=== PATIENT | female | born 1940 | race Caucasian/White ===

== ENCOUNTER 2018-05-12 00:47 | Inpatient (IN) | payer MEDICARE ==
[2018-05-12 01:03] LABS: Glucose,Whole Blood 287 mg/dL (75-99)
--- NOTE | 2018-05-12 01:09 | ED ---
General Adult HPI - General Chief complaint: Recheck/Abnormal Lab/Rx Stated complaint: High blood sugar Time Seen by Provider: 05/12/18 01:06 Source: patient Mode of arrival: wheelchair Limitations: no limitations - History of Present Illness Initial comments: Jimena is a 78-year-old female who presents to the emergency department today for evaluation of generalized fatigue and hyperglycemia. Patient reports that 3 days ago she was diagnosed with a urinary tract infection by her primary care physician she was prescribed by mouth Cipro which she reports she has been taking. Patient which she has taken 5 or 6 doses of the by mouth Cipro. Despite being compliant with her home medications the patient reports that she is progressively felt weaker and weaker and more unwell. Patient reports that she's had subjective fevers, generalized malaise, nausea and decreased appetite. She denies any abdominal pain nausea vomiting or diarrhea. She reports urinary frequency but no dysuria hematuria or malodorous urine in the past 24 hours. She states that for the past 24 hours she's felt too weak to even get out of bed and required her 's assistance to get to the restroom. This is very unlike her, she usually does walk with a walker around the house but recently has not even been able to support herself with a walker. Patient reports she checked her blood glucose at home and it read high, she has never experienced this in the past which prompted her to bring her to The ER for reevaluation. - Related Data Allergies Allergy/AdvReac Type Severity Reaction Status Date / Time No Known Allergies Allergy Verified 05/12/18 00:54 Review of Systems ROS Statement: Those systems with pertinent positive or pertinent negative responses have been documented in the HPI. ROS Other: All systems not noted in ROS Statement are negative. Past Medical History Past Medical History: Diabetes Mellitus, Hypertension History of Any Multi-Drug Resistant Organisms: None Reported Past Surgical History: Back Surgery Past Psychological History: No Psychological Hx Reported Smoking Status: Never smoker Past Alcohol Use History: Occasional Past Drug Use History: None Reported General Exam - General Exam Comments Initial Comments: GENERAL: Patient is well-developed and well-nourished. Patient appears dehydrated, is warm to the touch tachycardic and appears unwell. HENT: Normocephalic, Atraumatic. Neck is soft and supple. No significant lymphadenopathy is noted. Oropharynx is clear. Moist mucous membranes. Neck has full range of motion without eliciting any pain. EYES: The sclera were anicteric and conjunctiva were pink and moist. Extraocular movements were intact and pupils were equal round and reactive to light. Eyelids were unremarkable. PULMONARY: Unlabored respirations. Good breath sounds bilaterally. No audible rales rhonchi or wheezing was noted. CARDIOVASCULAR: There is a regular rate and rhythm without any murmurs gallops or rubs. ABDOMEN: Soft and nontender with normal bowel sounds. SKIN: Skin is pale with no lesions or rashes and otherwise unremarkable. NEUROLOGIC: Patient is alert and oriented x3. MUSCULOSKELETAL: Normal extremities with adequate strength and full range of motion. No lower extremity swelling or edema. No calf tenderness. LYMPHATICS: No significant lymphadenopathy is noted PSYCHIATRIC: Normal psychiatric evaluation. Limitations: no limitations Limitations: no limitations Course Vital Signs 05/12/18 05/12/18 05/12/18 00:51 02:00 02:33 Temperature 99.1 F 98.7 F Pulse Rate 130 H 119 H 114 H Respiratory 18 16 16 Rate Blood Pressure 158/80 175/82 O2 Sat by Pulse 98 94 L Oximetry 05/12/18 05/12/18 05/12/18 03:14 04:51 06:08 Temperature 98.6 F 100.3 F H 99.1 F Pulse Rate 115 H 111 H 111 H Respiratory 18 16 16 Rate Blood Pressure 178/82 162/83 189/92 O2 Sat by Pulse 98 96 97 Oximetry EKG Findings - EKG Comments: EKG Findings:: EKG obtained at 7 AM, rate is 118, rhythm is sinus tachycardia, normal axis, normal intervals, AR 136, QRS 72, QTc 442, there is no acute ST elevations or depressions no evidence of acute ischemia or infarction. Medical Decision Making - Medical Decision Making Patient was seen and evaluated, history is obtained from the patient and Elderly patient on by mouth Cipro for urinary tract infection presenting with generalized fatigue, tachycardia, has a tactile fever though her oral temperature was negative patient had been drinking fluids prior to arrival A sepsis workup was ordered Urinalysis is negative for any acute UTI Chest x-ray with no acute pulmonary pathology Labs with mild elevated transaminases of unknown origin CT of the abdomen was ordered, no acute findings on CT of the abdomen to account for inpatient Sirs criteria At this time is possible the patient's suffering from a viral illness in addition to recovering from a urinary tract infection, however considering her advanced age, tachycardia, temperature of 100.3 transaminases I do feel she requires further monitoring. Patient and are comfortable with the plan for discharge home therefore we'll plan to put the patient in observation Sirs criteria. Patient care discussed with Dr. Duarte who accepts the patient to observation for SIRS criteria in elderly female. - Lab Data Result diagrams: 05/12/18 01:52 05/12/18 01:53 Lab Results 05/12/18 05/12/18 05/12/18 Range/Units 01:02 01:52 01:53 WBC 6.7 (3.8-10.6) k/uL RBC 4.14 (3.80-5.40) m/uL Hgb 12.5 (11.4-16.0) gm/dL Hct 40.1 (34.0-46.0) % MCV 96.9 (80.0-100.0) fL MCH 30.1 (25.0-35.0) pg MCHC 31.1 (31.0-37.0) g/dL RDW 13.6 (11.5-15.5) % Plt Count 171 (150-450) k/uL Neutrophils % 90 % Lymphocytes % 5 % Monocytes % 3 % Eosinophils % 1 % Basophils % 1 % Neutrophils # 6.0 (1.3-7.7) k/uL Lymphocytes # 0.3 L (1.0-4.8) k/uL Monocytes # 0.2 (0-1.0) k/uL Eosinophils # 0.1 (0-0.7) k/uL Basophils # 0.0 (0-0.2) k/uL PT (9.0-12.0) sec INR (<1.2) APTT (22.0-30.0) sec Sodium 133 L (137-145) mmol/L Potassium 3.8 (3.5-5.1) mmol/L Chloride 106 (98-107) mmol/L Carbon Dioxide 19 L (22-30) mmol/L Anion Gap 8 mmol/L BUN 16 (7-17) mg/dL Creatinine 0.42 L (0.52-1.04) mg/dL Est GFR (CKD-EPI)AfAm >90 (>60 ml/min/1.73 sqM) Est GFR (CKD-EPI)NonAf >90 (>60 ml/min/1.73 sqM) Glucose 294 H (74-99) mg/dL POC Glucose (mg/dL) 287 H (75-99) mg/dL POC Glu Track Superintendent Dari Son Osmolality 292 (280-301) mosm/kg Plasma Lactic Acid Clarke (0.7-2.0) mmol/L Calcium 8.8 (8.4-10.2) mg/dL Total Bilirubin 0.6 (0.2-1.3) mg/dL AST 161 H (14-36) U/L ALT 140 H (9-52) U/L Alkaline Phosphatase 123 (38-126) U/L Troponin I (0.000-0.034) ng/mL Total Protein 5.9 L (6.3-8.2) g/dL Albumin 3.2 L (3.5-5.0) g/dL Urine Color Urine Appearance (Clear) Urine pH (5.0-8.0) Ur Specific Marsteller (1.001-1.035) Urine Protein (Negative) Urine Glucose (UA) (Negative) Urine Ketones (Negative) Urine Blood (Negative) Urine Nitrite (Negative) Urine Bilirubin (Negative) Urine Urobilinogen (<2.0) mg/dL Ur Leukocyte Esterase (Negative) Urine RBC (0-5) /hpf Urine WBC (0-5) /hpf Ur Squamous Epith Cells (0-4) /hpf Urine Mucus (None) /hpf Acetone, Qual Positive (Negative) 05/12/18 05/12/18 05/12/18 Range/Units 01:53 01:53 01:53 WBC (3.8-10.6) k/uL RBC (3.80-5.40) m/uL Hgb (11.4-16.0) gm/dL Hct (34.0-46.0) % MCV (80.0-100.0) fL MCH (25.0-35.0) pg MCHC (31.0-37.0) g/dL RDW (11.5-15.5) % Plt Count (150-450) k/uL Neutrophils % % Lymphocytes % % Monocytes % % Eosinophils % % Basophils % % Neutrophils # (1.3-7.7) k/uL Lymphocytes # (1.0-4.8) k/uL Monocytes # (0-1.0) k/uL Eosinophils # (0-0.7) k/uL Basophils # (0-0.2) k/uL PT 9.9 (9.0-12.0) sec INR 1.0 (<1.2) APTT 22.9 (22.0-30.0) sec Sodium (137-145) mmol/L Potassium (3.5-5.1) mmol/L Chloride (98-107) mmol/L Carbon Dioxide (22-30) mmol/L Anion Gap mmol/L BUN (7-17) mg/dL Creatinine (0.52-1.04) mg/dL Est GFR (CKD-EPI)AfAm (>60 ml/min/1.73 sqM) Est GFR (CKD-EPI)NonAf (>60 ml/min/1.73 sqM) Glucose (74-99) mg/dL POC Glucose (mg/dL) (75-99) mg/dL POC Glu Track Superintendent ID Osmolality (280-301) mosm/kg Plasma Lactic Acid Clarke 0.9 (0.7-2.0) mmol/L Calcium (8.4-10.2) mg/dL Total Bilirubin (0.2-1.3) mg/dL AST (14-36) U/L ALT (9-52) U/L Alkaline Phosphatase (38-126) U/L Troponin I 0.014 (0.000-0.034) ng/mL Total Protein (6.3-8.2) g/dL Albumin (3.5-5.0) g/dL Urine Color Urine Appearance (Clear) Urine pH (5.0-8.0) Ur Specific [place]steller (1.001-1.035) Urine Protein (Negative) Urine Glucose (UA) (Negative) Urine Ketones (Negative) Urine Blood (Negative) Urine Nitrite (Negative) Urine Bilirubin (Negative) Urine Urobilinogen (<2.0) mg/dL Ur Leukocyte Esterase (Negative) Urine RBC (0-5) /hpf Urine WBC (0-5) /hpf Ur Squamous Epith Cells (0-4) /hpf Urine Mucus (None) /hpf Acetone, Qual (Negative) 05/12/18 Range/Units 03:12 WBC (3.8-10.6) k/uL RBC (3.80-5.40) m/uL Hgb (11.4-16.0) gm/dL Hct (34.0-46.0) % MCV (80.0-100.0) fL MCH (25.0-35.0) pg MCHC (31.0-37.0) g/dL RDW (11.5-15.5) % Plt Count (150-450) k/uL Neutrophils % % Lymphocytes % % Monocytes % % Eosinophils % % Basophils % % Neutrophils # (1.3-7.7) k/uL Lymphocytes # (1.0-4.8) k/uL Monocytes # (0-1.0) k/uL Eosinophils # (0-0.7) k/uL Basophils # (0-0.2) k/uL PT (9.0-12.0) sec INR (<1.2) APTT (22.0-30.0) sec Sodium (137-145) mmol/L Potassium (3.5-5.1) mmol/L Chloride (98-107) mmol/L Carbon Dioxide (22-30) mmol/L Anion Gap mmol/L BUN (7-17) mg/dL Creatinine (0.52-1.04) mg/dL Est GFR (CKD-EPI)AfAm (>60 ml/min/1.73 sqM) Est GFR (CKD-EPI)NonAf (>60 ml/min/1.73 sqM) Glucose (74-99) mg/dL POC Glucose (mg/dL) (75-99) mg/dL POC Glu Track Superintendent ID Osmolality (280-301) mosm/kg Plasma Lactic Acid Clarke (0.7-2.0) mmol/L Calcium (8.4-10.2) mg/dL Total Bilirubin (0.2-1.3) mg/dL AST (14-36) U/L ALT (9-52) U/L Alkaline Phosphatase (38-126) U/L Troponin I (0.000-0.034) ng/mL Total Protein (6.3-8.2) g/dL Albumin (3.5-5.0) g/dL Urine Color Light Yellow Urine Appearance Clear (Clear) Urine pH 6.0 (5.0-8.0) Ur Specific [place]steller 1.028 (1.001-1.035) Urine Protein 1+ H (Negative) Urine Glucose (UA) 4+ H (Negative) Urine Ketones 2+ H (Negative) Urine Blood Negative (Negative) Urine Nitrite Negative (Negative) Urine Bilirubin Negative (Negative) Urine Urobilinogen <2.0 (<2.0) mg/dL Ur Leukocyte Esterase Negative (Negative) Urine RBC 1 (0-5) /hpf Urine WBC 3 (0-5) /hpf Ur Squamous Epith Cells <1 (0-4) /hpf Urine Mucus Rare H (None) /hpf Acetone, Qual (Negative) Disposition Clinical Impression: SIRS (systemic inflammatory response syndrome) Disposition: ADMITTED IP TO THIS HOSP Condition: Stable Referrals: Allen Bahena MD [Primary Care Provider] - 1-2 days
[2018-05-12] MEDS: SODIUM CHLORIDE 0.9% 500 ML IV SCH (01:55)
[2018-05-12 02:08] LABS: Basophils % (A) 1 %; Eosinophils # (A) 0.1 k/uL (0-0.7); Eosinophils % (A) 1 %; HCT 40.1 % (34.0-46.0); HGB 12.5 gm/dL (11.4-16.0); Lymphocytes # (A) 0.3 k/uL (1.0-4.8); Lymphocytes % (A) 5 %; MCH 30.1 pg (25.0-35.0); MCHC 31.1 g/dL (31.0-37.0); MCV 96.9 fL (80.0-100.0); Mean Platelet Volume 7.9; Monocytes # (A) 0.2 k/uL (0-1.0); Monocytes % (A) 3 %; Neutrophils % (A) 90 %; Platelet Count 171 k/uL (150-450); RBC 4.14 m/uL (3.80-5.40); RDW 13.6 % (11.5-15.5); WBC 6.7 k/uL (3.8-10.6)
[2018-05-12 02:19] LABS: ALT 140 U/L (9-52); AST 161 U/L (14-36); Albumin 3.2 g/dL (3.5-5.0); Alkaline Phosphatase 123 U/L (38-126); Anion Gap 8 mmol/L; Blood Urea Nitrogen 16 mg/dL (7-17); Calcium 8.8 mg/dL (8.4-10.2); Carbon Dioxide 19 mmol/L (22-30); Chloride 106 mmol/L (98-107); Glucose 294 mg/dL (74-99); Potassium 3.8 mmol/L (3.5-5.1); Sodium 133 mmol/L (137-145); Total Bilirubin 0.6 mg/dL (0.2-1.3); Total Protein 5.9 g/dL (6.3-8.2)
[2018-05-12 02:22] LABS: Partial Thromboplastin Time 22.9 sec (22.0-30.0); Prothrombin Time 9.9 sec (9.0-12.0)
[2018-05-12 03:21] LABS: Appearance,Urine Clear (Clear); Bilirubin,Urine Negative (Negative); Blood,Urine Negative (Negative); Color,Urine Light Yellow; Glucose,Urine (UA) 4+ (Negative); Leukocyte Esterase,Urine Negative (Negative); Mucus,Urine Rare /hpf; Nitrite,Urine Negative (Negative); Protein,Urine 1+ (Negative); RBC,Urine 1 /hpf (0-5); Specific Gravity,Urine 1.028 (1.001-1.035); Squamous Epithelial Cell,Urine <1 /hpf (0-4); Urobilinogen,Urine <2.0 mg/dL (<2.0); WBC,Urine 3 /hpf (0-5)
[2018-05-12 03:38] LABS: Ketones,Urine 2+ (Negative)
--- NOTE | 2018-05-12 04:20 | XR ---
EXAMINATION TYPE: XR chest 2V DATE OF EXAM: 05/12/2018 COMPARISON: NONE HISTORY: Chest pain TECHNIQUE: Frontal and lateral views of the chest are obtained. FINDINGS: There is some patchy linear density in the mid and lower lung barnes. There is no heart fa ilure. Heart size is fairly normal. There is no pleural effusion. Bony thorax is intact. There are ch est leads. IMPRESSION: Bilateral patchy atelectasis. No heart failure. No pulmonary consolidation.
--- NOTE | 2018-05-12 05:34 | CT ---
EXAMINATION TYPE: CT abdomen pelvis w con DATE OF EXAM: 05/12/2018 COMPARISON: None HISTORY: gen weakness and nausea, elevated blood sugar, history of cholecystectomy CT DLP: 617.90 mGycm Automated exposure control for dose reduction was used. TECHNIQUE: Helical acquisition of images was performed from the lung bases through the pelvis. CONTRAST: Performed without Oral Contrast and with IV Contrast, patient injected with 100 mL of Isovue 300. FINDINGS: There is some patchy linear density in both lower lobes. There is no pleural effusion. There are smal l hiatal hernia. Liver spleen pancreas appear normal. There are clips from cholecystectomy. Bile ducts are not dilated . There is no adrenal mass. Kidneys show satisfactory contrast opacification. There is no hydronephro sis. Ureters are not dilated. Abdominal aorta is atheromatous. There is no retroperitoneal adenopathy . There is small umbilical hernia that contains fat. There are multiple diverticula in the sigmoid co delmer. Uterus is anteverted. There are spondylotic changes in the lumbar spine. There is metal artifact from posterior fusion surgery. There is no ascites. There is no sign of free air. Appendix appears n ormal. IMPRESSION: THERE ARE SMALL HIATAL HERNIA. MILD SIGMOID DIVERTICULOSIS WITHOUT DIVERTICULITIS. NORMAL APPENDIX. N O SIGN OF ACUTE ABDOMEN AND PELVIS. MILD SCARRING AND SUBSEGMENTAL ATELECTASIS AT THE POSTERIOR LUNG BASES.
[2018-05-12 07:34] LABS: Glucose,Whole Blood 250 mg/dL (75-99)
[2018-05-12] MEDS: INSULIN ASPART 100 UNIT/ML 1 ML 10 ML VIAL SQ SCH ×4 (08:27→21:04)
[2018-05-12 09:01] VITALS: BMI 24.1
[2018-05-12 11:09] LABS: Glucose,Whole Blood 355 mg/dL (75-99)
--- NOTE | 2018-05-12 11:14 | P.HPIM ---
History of Present Illness 78-year-old female came in with generalized fatigue and confusional episodes. Patient also had fever in ER. All the workup is negative patient denied any abdominal tenderness was comparing of cough without any sputum production that is some mild atelectasis on the chest x-ray abdominal CAT scan was opted which did not show any significant of nausea patient does not have gallbladder patient denied any dysuria suprapubic pain at this time. Patient was recently about 3-4 days ago was evaluated by primary care physician believed that she had urinary tract infection patient was started on fluoroquinolones and the believes fluoroquinolones may have contributed to her confusion and generalized fatigue she denied any diarrhea. Patient denied any photophobia denied any generalized body aches. Patient was comparing of restless leg syndrome and patient has on and off pain in the left hip area where she has a bursa and received an injection to the bursa about a month ago. Patient still has on and off pain which is not more than normal. There is no tenderness in the left hip area and there is no redness anywhere. Patient denied any headache. Denied any diarrhea, complaining of some nausea Review of Systems REVIEW OF SYSTEMS: CONSTITUTIONAL: As mentioned in HPI HEENT: No recent visual problems or hearing problems. Denied any sore throat. CARDIOVASCULAR: No chest pain, orthopnea, PND, no palpitations, no syncope. PULMONARY: No shortness of breath, no cough, no hemoptysis. GASTROINTESTINAL: No diarrhea, no nausea, no vomiting, no abdominal pain. Normoactive bowel sounds. NEUROLOGICAL: No headaches, no weakness, no numbness. HEMATOLOGICAL: Denies any bleeding or petechiae. GENITOURINARY: Denies any burning micturition, frequency, or urgency. MUSCULOSKELETAL/RHEUMATOLOGICAL: Denies any joint pain, swelling, or any muscle pain. ENDOCRINE: Denies any polyuria or polydipsia. The rest of the 14-point review of systems is negative. Past Medical History Past Medical History: Diabetes Mellitus, Hypertension History of Any Multi-Drug Resistant Organisms: None Reported Past Surgical History: Back Surgery Past Psychological History: No Psychological Hx Reported Smoking Status: Never smoker Past Alcohol Use History: Occasional Past Drug Use History: None Reported Medications and Allergies Allergies Allergy/AdvReac Type Severity Reaction Status Date / Time No Known Allergies Allergy Verified 05/12/18 00:54 Physical Exam Vitals: Vital Signs Temp Pulse Resp BP Pulse Ox 05/12/18 08:42 97.0 F L 106 H 18 159/87 98 05/12/18 07:10 99.6 F 109 H 16 161/80 97 05/12/18 06:08 99.1 F 111 H 16 189/92 97 05/12/18 04:51 100.3 F H 111 H 16 162/83 96 05/12/18 03:14 98.6 F 115 H 18 178/82 98 05/12/18 02:33 98.7 F 114 H 16 05/12/18 02:00 119 H 16 175/82 94 L 05/12/18 00:51 99.1 F 130 H 18 158/80 98 Intake and Output 05/11/18 05/12/18 05/12/18 22:59 06:59 14:59 Other: Weight 63.503 kg 59.874 kg PHYSICAL EXAMINATION: GENERAL: The patient is alert and oriented x3, not in any acute distress. Well developed, well nourished. HEENT: Pupils are round and equally reacting to light. EOMI. No scleral icterus. No conjunctival pallor. Normocephalic, atraumatic. No pharyngeal erythema. No thyromegaly. CARDIOVASCULAR: S1 and S2 present. No murmurs, rubs, or gallops. PULMONARY: Chest is clear to auscultation, no wheezing or crackles. ABDOMEN: Soft, nontender, nondistended, normoactive bowel sounds. No palpable organomegaly. MUSCULOSKELETAL: No joint swelling or deformity. EXTREMITIES: No cyanosis, clubbing, or pedal edema. NEUROLOGICAL: Gross neurological examination did not reveal any focal deficits. SKIN: No rashes. Results CBC & Chem 7: 05/12/18 01:52 05/12/18 01:53 Labs: Abnormal Lab Results - Last 24 Hours (Table) 05/12/18 05/12/18 05/12/18 Range/Units 01:02 01:52 01:53 Lymphocytes # 0.3 L (1.0-4.8) k/uL Sodium 133 L (137-145) mmol/L Carbon Dioxide 19 L (22-30) mmol/L Creatinine 0.42 L (0.52-1.04) mg/dL Glucose 294 H (74-99) mg/dL POC Glucose (mg/dL) 287 H (75-99) mg/dL AST 161 H (14-36) U/L ALT 140 H (9-52) U/L Total Protein 5.9 L (6.3-8.2) g/dL Albumin 3.2 L (3.5-5.0) g/dL Urine Protein (Negative) Urine Glucose (UA) (Negative) Urine Ketones (Negative) Urine Mucus (None) /hpf 05/12/18 05/12/18 Range/Units 03:12 07:31 Lymphocytes # (1.0-4.8) k/uL Sodium (137-145) mmol/L Carbon Dioxide (22-30) mmol/L Creatinine (0.52-1.04) mg/dL Glucose (74-99) mg/dL POC Glucose (mg/dL) 250 H (75-99) mg/dL AST (14-36) U/L ALT (9-52) U/L Total Protein (6.3-8.2) g/dL Albumin (3.5-5.0) g/dL Urine Protein 1+ H (Negative) Urine Glucose (UA) 4+ H (Negative) Urine Ketones 2+ H (Negative) Urine Mucus Rare H (None) /hpf Microbiology - Last 24 Hours (Table) 05/12/18 03:12 Urine Culture - Preliminary Urine,Voided Thrombosis Risk Factor Assmnt - Choose All That Apply Any of the Below Risk Factors Present?: No Other Risk Factors: No Thrombosis Risk Factor Assessment Level: Very Low Risk Assessment and Plan Plan: -Systemic inflammatory response syndrome or sepsis: Unsure of about the exact etiology of her fever can be urinary tract infection which was partially treated because of which urine analysis is essentially within normal limits. Patient is already receiving ciprofloxacin because of which I do not believe her urine culture will be positive and her confusion is probably because of Cipro Floxin or sepsis itself. Patient does not have any hip tenderness. We' ll continue to monitor today awaiting blood cultures urine cultures. If patient is afebrile will be discharged tomorrow. Patient will be continued on Rocephin for now -Toxic encephalopathy from fluoroquinolones. -Elevated liver enzymes etiology is unknown we'll repeat compresses metabolic profile tomorrow we will also obtain a hepatitis panel patient doesn't have any gallbladder at this time the patient liver enzymes are still elevated will obtain a right upper quadrant ultrasound to see if there is any choledocholithiasis or ascending cholangitis -Type 2 diabetes mellitus with elevated blood sugars: Patient is presently on sliding scale insulin I do not have her medication list available yet. Once we get the list patient the medications will be restarted back which are is appropriate -Hypertension -Restless leg syndrome: Patient will be started on requip
[2018-05-12] MEDS: SODIUM CHLORIDE 0.9% 1,000 ML IV SCH ×2 (15:54→21:06)
[2018-05-12 15:55] LABS: Glucose,Whole Blood 245 mg/dL (75-99)
[2018-05-12 17:23] LABS: Glucose,Whole Blood 239 mg/dL (75-99)
[2018-05-12 17:47] LABS: Hepatitis A Antibody IgM Non-Reactive (Non-Reactive); Hepatitis B Core IgM Non-Reactive (Non-Reactive)
[2018-05-12 18:37] LABS: Hemoglobin A1C 10.4 % (4.0-6.0)
[2018-05-12 20:22] LABS: Glucose,Whole Blood 247 mg/dL (75-99)
[2018-05-12] MEDS: GABAPENTIN 400 MG CAP PO SCH (21:04)
[2018-05-12] MEDS ORDERED: LISINOPRIL 10 MG TAB PO STA (21:27)
[2018-05-12 21:33] VITALS: RESP 16
[2018-05-13 07:31] LABS: Glucose,Whole Blood 220 mg/dL (75-99)
[2018-05-13 07:31] LABS: HCT 38.5 % (34.0-46.0); HGB 12.4 gm/dL (11.4-16.0); MCH 30.8 pg (25.0-35.0); MCHC 32.1 g/dL (31.0-37.0); MCV 95.7 fL (80.0-100.0); Mean Platelet Volume 7.8; Platelet Count 174 k/uL (150-450); RBC 4.02 m/uL (3.80-5.40); RDW 13.5 % (11.5-15.5); WBC 5.2 k/uL (3.8-10.6)
[2018-05-13 07:50] LABS: ALT 119 U/L (9-52); AST 67 U/L (14-36); Alkaline Phosphatase 117 U/L (38-126); Anion Gap 9 mmol/L; Blood Urea Nitrogen 10 mg/dL (7-17); Calcium 8.8 mg/dL (8.4-10.2); Carbon Dioxide 20 mmol/L (22-30); Chloride 113 mmol/L (98-107); Glucose 216 mg/dL (74-99); Potassium 3.7 mmol/L (3.5-5.1); Sodium 142 mmol/L (137-145); Total Bilirubin 0.3 mg/dL (0.2-1.3); Total Protein 5.6 g/dL (6.3-8.2)
--- NOTE | 2018-05-13 08:01 | US ---
EXAMINATION TYPE: US gallbladder DATE OF EXAM: 05/13/2018 COMPARISON: CLINICAL HISTORY: elevated liver enzymes. GB removed >40 years per patient. Sometimes has nausea. EXAM MEASUREMENTS: Liver Length: 14.7 cm CBD: 0.3 cm CHD: 0.4 cm Right Kidney: 11.1 x 4.8 x 4.5 cm Pancreas: Echogenic and heterogenous in appearance. Main pancreatic duct = 2.5 mm. Tail obscured by overlying bowel gas Liver: wnl Gallbladder: Surgically absent Evidence for sonographic Mcdermott's sign: neg CBD: wnl CHD: wnl Right Kidney: wnl Limited views of the pancreas are normal. The liver is normal in size without biliary dilatation. The gallbladder is been removed. Distal common hepatic duct measures 4 mm. The right kidney is unremarkable. IMPRESSION: NO ACUTE RIGHT UPPER QUADRANT ABNORMALITY.
[2018-05-13] MEDS: INSULIN DETEMIR 100 UNIT/ML 10 ML VIAL SQ SCH (09:03)
[2018-05-13] MEDS: PANTOPRAZOLE 40 MG TABLET PO SCH (09:03)
[2018-05-13] MEDS: GABAPENTIN 400 MG CAP PO SCH ×2 (09:03→21:34)
[2018-05-13] MEDS: INSULIN ASPART 100 UNIT/ML 1 ML 10 ML VIAL SQ SCH ×4 (09:03→21:36)
[2018-05-13] MEDS: LISINOPRIL 10 MG TAB PO SCH (09:03)
[2018-05-13] MEDS: SODIUM CHLORIDE 0.9% 1,000 ML IV SCH ×2 (09:04→17:51)
[2018-05-13] MEDS ORDERED: RX INFO: IV CONTRAST WAS GIVEN 1 EACH MISC MISCELLANE PRN (10:38)
--- NOTE | 2018-05-13 11:02 | P.DS ---
Providers Date of admission: 05/12/18 07:59 Attending physician: Ketan Duarte Primary care physician: [facility] Course: This is a discharge summary and progress note. 78-year-old female came in with generalized fatigue and confusional episodes. Patient also had fever in ER. All the workup is negative patient denied any abdominal tenderness was comparing of cough without any sputum production that is some mild atelectasis on the chest x-ray abdominal CAT scan was opted which did not show any significant of nausea patient does not have gallbladder patient denied any dysuria suprapubic pain at this time. Patient was recently about 3-4 days ago was evaluated by primary care physician believed that she had urinary tract infection patient was started on fluoroquinolones and the believes fluoroquinolones may have contributed to her confusion and generalized fatigue she denied any diarrhea. Patient denied any photophobia denied any generalized body aches. Patient was comparing of restless leg syndrome and patient has on and off pain in the left hip area where she has a bursa and received an injection to the bursa about a month ago. Patient still has on and off pain which is not more than normal. There is no tenderness in the left hip area and there is no redness anywhere. Patient denied any headache. Denied any diarrhea, complaining of some nausea 05/13/2018 Patient is feeling much better today no fevers today. Patient is feeling better sitting in the chair. Patient remains tachycardic because of which obtain TSH which is still pending d-dimer is elevated will obtain a CAT scan of the chest rule out pulmonary embolism. Source of infection is still not clear possibility of urinary tract infection since source is not clear in all the workup is negative including ultrasound of the abdomen patient will be discharged on 1 week of Ceftin. AST and ALT are coming down. If CAT scan of the abdomen is negative for pulmonary embolism patient will be discharged today. PHYSICAL EXAMINATION: GENERAL: The patient is alert and oriented x3, not in any acute distress. Well developed, well nourished. HEENT: Pupils are round and equally reacting to light. EOMI. No scleral icterus. No conjunctival pallor. Normocephalic, atraumatic. No pharyngeal erythema. No thyromegaly. CARDIOVASCULAR: S1 and S2 present. No murmurs, rubs, or gallops. PULMONARY: Chest is clear to auscultation, no wheezing or crackles. ABDOMEN: Soft, nontender, nondistended, normoactive bowel sounds. No palpable organomegaly. MUSCULOSKELETAL: No joint swelling or deformity. EXTREMITIES: No cyanosis, clubbing, or pedal edema. NEUROLOGICAL: Gross neurological examination did not reveal any focal deficits. SKIN: No rashes. Assessment and Plan Plan: -Systemic inflammatory response syndrome or sepsis: Unsure of about the exact etiology of her fever can be urinary tract infection which was partially treated because of which urine analysis is essentially within normal limits. Patient is already receiving ciprofloxacin because of which I do not believe her urine culture will be positive and her confusion is probably because of Cipro Floxin or sepsis itself. Patient does not have any hip tenderness. She is still tachycardic will rule out pulmonary embolism as mentioned about TSH is still pending -Toxic encephalopathy from fluoroquinolones. -Elevated liver enzymes all the workup including the right upper quadrant ultrasound along with a hepatitis panel are negative when the liver enzymes are coming down no further workup is necessary at this time. -Type 2 diabetes mellitus with elevated blood sugars: Patient will resume her home regimen although her blood sugars are not well-controlled with hemoglobin A1c about 10 patient may need up titration of her medications. -Hypertension -Restless leg syndrome: Patient will be discharged on Requip Patient Condition at Discharge: Stable Plan - Discharge Summary New Discharge Prescriptions: No Action Benazepril [Lotensin] 10 mg PO DAILY glipiZIDE [Glucotrol] 10 mg PO AC-BID Gabapentin [Neurontin] 400 mg PO BID Omeprazole 20 mg PO DAILY Insulin Detemir [Levemir Flextouch] 45 unit SQ DAILY Cephalexin [Keflex] 500 mg PO TID Diclofenac Sodium [Diclofenac Sodium ER] 100 mg PO DAILY PRN PRN Reason: Inflammation Chlorzoxazone [Parafon Forte DSC] 500 mg PO BID Discharge Medication List Benazepril [Lotensin] 10 mg PO DAILY 05/12/18 [History] Cephalexin [Keflex] 500 mg PO TID 05/12/18 [History] Chlorzoxazone [Parafon Forte DSC] 500 mg PO BID 05/12/18 [History] Diclofenac Sodium [Diclofenac Sodium ER] 100 mg PO DAILY PRN 05/12/18 [History] Gabapentin [Neurontin] 400 mg PO BID 05/12/18 [History] Insulin Detemir [Levemir Flextouch] 45 unit SQ DAILY 05/12/18 [History] Omeprazole 20 mg PO DAILY 05/12/18 [History] glipiZIDE [Glucotrol] 10 mg PO AC-BID 05/12/18 [History] Follow up Appointment(s)/Referral(s): Allen Bahena MD [Primary Care Provider] - 1-2 days
--- NOTE | 2018-05-13 11:36 | CT ---
EXAMINATION TYPE: CT angio chest DATE OF EXAM: 05/13/2018 11:25 AM COMPARISON: None. HISTORY: Elevated d dimer CT DLP: 231.4 mGycm Automated exposure control for dose reduction was used. CONTRAST: CTA scan of the thorax is performed with IV Contrast, patient injected with 61 mL of Isovue 370, pulm onary embolism protocol. . FINDINGS: There is right middle lobe and bilateral lower lobe atelectasis. There is nodularity along the pleural surface bilaterally. Largest pleural nodule on the right measures 5.4 mm. Largest pleural nodule in the left measures 7.6 mm. There is also atelectatic change in the left lingula. There is no significant axillary, internal mammary, mediastinal or hilar adenopathy. There is no evidence of pulmonary embolus. The aorta is normal in caliber without evidence of dissection. There is no pleural or pericardial fluid. The heart is not enlarged. Within the abdomen, the gallbladder is been removed. Visualized portions of the upper abdomen are oth erwise unremarkable. There is hypertrophic spondylosis within the spine. IMPRESSION: 1. THIS EXAMINATION IS NEGATIVE FOR PULMONARY EMBOLUS. 2. PLEURAL-BASED NODULARITY MAY REFLECT ATELECTASIS. SHORT-TERM FOLLOW-UP SCANNING WOULD BE SUGGESTED .
[2018-05-13 11:42] LABS: Glucose,Whole Blood 367 mg/dL (75-99)
[2018-05-13 17:18] LABS: Glucose,Whole Blood 248 mg/dL (75-99)
[2018-05-13 20:56] LABS: Glucose,Whole Blood 167 mg/dL (75-99)
[2018-05-14 05:51] VITALS: BP 175/83; PULSE 90; TEMP 97.2
[2018-05-14 07:05] LABS: Glucose,Whole Blood 137 mg/dL (75-99)
[2018-05-14] MEDS: SODIUM CHLORIDE 0.9% 1,000 ML IV SCH ×2 (07:12→13:41)
[2018-05-14] MEDS: LISINOPRIL 10 MG TAB PO SCH (07:13)
[2018-05-14] MEDS: PANTOPRAZOLE 40 MG TABLET PO SCH (07:13)
[2018-05-14] MEDS: GABAPENTIN 400 MG CAP PO SCH (07:13)
[2018-05-14] MEDS: INSULIN ASPART 100 UNIT/ML 1 ML 10 ML VIAL SQ SCH ×2 (07:14→12:33)
[2018-05-14] MEDS: INSULIN DETEMIR 100 UNIT/ML 10 ML VIAL SQ SCH (08:50)
--- NOTE | 2018-05-14 10:51 | P.DS ---
Providers Date of admission: 05/13/18 09:26 Attending physician: Ketan Duarte [facility] Course: Patient is staying in the hospital because of the social issues and patient will be discharged today. GENERAL: The patient is alert and oriented x3, not in any acute distress. Well developed, well nourished. HEENT: Pupils are round and equally reacting to light. EOMI. No scleral icterus. No conjunctival pallor. Normocephalic, atraumatic. No pharyngeal erythema. No thyromegaly. CARDIOVASCULAR: S1 and S2 present. No murmurs, rubs, or gallops. PULMONARY: Chest is clear to auscultation, no wheezing or crackles. ABDOMEN: Soft, nontender, nondistended, normoactive bowel sounds. No palpable organomegaly. MUSCULOSKELETAL: No joint swelling or deformity. EXTREMITIES: No cyanosis, clubbing, or pedal edema. NEUROLOGICAL: Gross neurological examination did not reveal any focal deficits. SKIN: No rashes. Please refer to my dictation of discharge summary from yesterday for further details Patient Condition at Discharge: Stable Plan - Discharge Summary New Discharge Prescriptions: New Cefuroxime Axetil [Ceftin] 500 mg PO BID #10 tab rOPINIRole HCL [Requip] 0.25 mg PO HS #30 tab Metoprolol Tartrate [Lopressor] 25 mg PO BID #60 tablet Continue Benazepril [Lotensin] 10 mg PO DAILY glipiZIDE [Glucotrol] 10 mg PO AC-BID Gabapentin [Neurontin] 400 mg PO BID Omeprazole 20 mg PO DAILY Insulin Detemir [Levemir Flextouch] 45 unit SQ DAILY Diclofenac Sodium [Diclofenac Sodium ER] 100 mg PO DAILY PRN PRN Reason: Inflammation Chlorzoxazone [Parafon Forte DSC] 500 mg PO BID Discontinued Cephalexin [Keflex] 500 mg PO TID Discharge Medication List Benazepril [Lotensin] 10 mg PO DAILY 05/12/18 [History] Chlorzoxazone [Parafon Forte DSC] 500 mg PO BID 05/12/18 [History] Diclofenac Sodium [Diclofenac Sodium ER] 100 mg PO DAILY PRN 05/12/18 [History] Gabapentin [Neurontin] 400 mg PO BID 05/12/18 [History] Insulin Detemir [Levemir Flextouch] 45 unit SQ DAILY 05/12/18 [History] Omeprazole 20 mg PO DAILY 05/12/18 [History] glipiZIDE [Glucotrol] 10 mg PO AC-BID 05/12/18 [History] Cefuroxime Axetil [Ceftin] 500 mg PO BID #10 tab 05/13/18 [Rx] Metoprolol Tartrate [Lopressor] 25 mg PO BID #60 tablet 05/13/18 [Rx] rOPINIRole HCL [Requip] 0.25 mg PO HS #30 tab 05/13/18 [Rx] Follow up Appointment(s)/Referral(s): Allen Bahena MD [Primary Care Provider] - 3 Days (Patient to call Dr. Bahena's office Monday morning to schedule follow up appointment. The office is closed at time of discharge. ) [facility], [NON-STAFF] - Patient Instructions/Handouts: Cefuroxime (By mouth), Metoprolol (By mouth), Ropinirole (By mouth), Urinary Tract Infection in Women (DC)
[2018-05-14 11:54] LABS: Glucose,Whole Blood 241 mg/dL (75-99)
--- NOTE | 2018-05-18 09:32 | CDI ---
Last Revision, July 2017 Documentation Clarification Form Date: 05/18/18 From: Cami Arnoldo Yvonne Ingram, Lead Radiation Therapist Hours-8:30 am & 5 pm MCarlo Admit Date: 05/13/2018 9:26:00 AM Patient Name: Jimena Tierney Visit Number: [id number] Discharge Date: 05/14/18 ATTENTION: The Clinical Documentation Specialists (CDI) and [facility] Coding Staff appreciate your assistance in clarifying documentation. Please respond to the clarification below the line at the bottom and electronically sign. The CDI & [facility] Coding staff will review the response and follow-up if needed. Please note: Queries are made part of the Legal Health Record. If you have any questions, please contact the author of this message via ITS. Fabrice Matias MD DS states "Systemic inflammatory response syndrome or sepsis: unsure of about the exact etiology of her fever can be UTI which was partially treated because of which analysis is essentially within normal limits." History/Risk Factors: UTI, toxic encephalopathy due to Keflex, DM WBC/Left Shift: 6.7/90 Lactic acid: 0.9 Blood cultures: negative Vitals signs on admission: T-100.3, P-115, R-16, BP-162/83 Treatment: IV Rocephin In your professional opinion, please if sepsis or SIRS: SIRS, without underlying infectious process Sepsis Severe Sepsis Septic Shock Other, please specify Unable to determine Please continue to document in your progress notes and discharge summary in order to capture severity of illness and risk of mortality. Include clinical findings that support your diagnosis. Sepsis MTDD
== END 2018-05-14 13:55 | disposition home health service (06) | DRG 871 ==
LOC: EC 00:47 → 5MS5E 07:59 → OBSVTOIN 05-13 09:26
PROVIDERS: ADMIT Internal Medicine; ATTEND Internal Medicine
DX: A41.9 Sepsis, unspecified organism (principal); G92 Toxic encephalopathy; N39.0 Urinary tract infection, site not specified; E11.65 Type 2 diabetes mellitus with hyperglycemia; G25.81 Restless legs syndrome; M25.552 Pain in left hip; T36.1X5A Adverse effect of cephalosporins and other beta-lactam antibiotics, initial encounter; I10 Essential (primary) hypertension; R74.0 Nonspecific elevation of levels of transaminase and lactic acid dehydrogenase [LDH]; Z79.4 Long term (current) use of insulin; Z79.899 Other long term (current) drug therapy
CPT/HCPCS: 36415; 71046; 71275; 74177; 76705; 80053; 80074; 81001; 82009; 83036; 83605; 83930; 84443; 84484; 85025; 85027; 85379; 85610; 85730; 87040; 87086; 93005; 96360; 96361; 99285